=== PATIENT | female | born 1970 | race Hispanic/Latino ===

== ENCOUNTER 2016-08-09 17:56 | Emergency (ER) | payer OTHER, SELFPAY | END 2016-08-09 18:28 | disposition home or self-care (01) | LOC: MADERS 17:56 | DX: S99.921A Unspecified injury of right foot, initial encounter (principal); I25.2 Old myocardial infarction; I10 Essential (primary) hypertension; E78.00 Pure hypercholesterolemia, unspecified; W22.8XXA Striking against or struck by other objects, initial encounter | CPT/HCPCS: 99283 ==